=== PATIENT | male | born 1935 | race Caucasian/White ===

== ENCOUNTER 2018-11-12 21:09 | Emergency (ER) | payer OTHER ==
[~2018-11-12] VITALS: Ht 165.1 cm; Wt 68.0 kg
[~2018-11-12 21:09] MED LIST: CIPRO750 MG PO; IBUPROFEN800 MG PO; ORPH100T PO; TRAMADOL HCL50 MG PO; TRIPLE ANTIBIOT15 GM TP
== END 2018-11-12 22:22 | disposition home or self-care (01) ==
LOC: ER 21:09
DX: M79.601 Pain in right arm (principal); S40.021S Contusion of right upper arm, sequela; W22.8XXS Striking against or struck by other objects, sequela

== ENCOUNTER 2024-02-09 13:19 | Emergency (ER) | payer OTHER ==
[~2024-02-09] VITALS: Ht 170.2 cm; Wt 68.0 kg
[2024-02-09] MEDS ORDERED: DEXAMETHASONE SODIUM PHOSPHATE 4 MG/ML VIAL IM STA (15:02)
[2024-02-09] MEDS ORDERED: DEXAMETHASONE SODIUM PHOSPHATE 4 MG/ML VIAL ONE (15:33)
[2024-02-09] MEDS ORDERED: METHYLPREDNISOLONE SOD SUCC 125 MG VIAL IV STA (15:47)
[2024-02-09] MEDS ORDERED: 0.9 % SODIUM CHLORIDE 500 ML IV STA (15:48)
[2024-02-09] MEDS ORDERED: METHYLPREDNISOLONE SOD SUCC 125 MG VIAL ONE (15:55)
[2024-02-09] MEDS ORDERED: BUDESONIDE 0.5 MG/2 ML AMPUL.NEB IH SCH (16:00)
[2024-02-09] MEDS ORDERED: LEVALBUTEROL HCL 1.25 MG/3 ML SOLUTION IH SCH (16:00)
[2024-02-09] MEDS ORDERED: IPRATROPIUM BROMIDE 0.5 MG/2.5 ML AMPUL.NEB IH SCH (16:00)
[2024-02-09] MEDS ORDERED: IPRATROPIUM BROMIDE 0.5 MG/2.5 ML AMPUL.NEB IH ONE (16:08)
[2024-02-09] MEDS ORDERED: BUDESONIDE 0.5 MG/2 ML AMPUL.NEB IH ONE (16:08)
[2024-02-09] MEDS ORDERED: LEVALBUTEROL HCL 1.25 MG/3 ML SOLUTION IH ONE (16:08)
[2024-02-09 16:19] LABS: HEMATOCRIT 40.3 % (39.0-48.0); HEMOGLOBIN 13.7 g/dL (13-16.00); MEAN CELL VOLUME 90.7 fL (80.0-100.00); MEAN CORPUSCULAR HEMOGLOBIN 30.9 pg (27.00-32.0); PLATELET COUNT 267 K/uL (150-450); RED BLOOD COUNT 4.44 M/uL (4.00-6.00); RED CELL DISTRIBUTION WIDTH 14.4 % (11.5-14.5)
[2024-02-09 16:27] LABS: ABG PH 7.507 (7.35-7.45); ABG PO2 95.8 mmHg (80-100); ABG pCO2 29.1 mmHg (35-45); BASE EXCESS 0.7 mmol/l; BICARBONATE 22.6 mmol/l (23-25); SaO2 98.2 %; Tco2 23.5 mmol/l
[2024-02-09 16:54] LABS: CALCIUM 8.9 mg/dL (8.5-10.1); CREATININE SERUM 0.77 mg/dL (0.70-1.30); GFR 95.79; POTASSIUM 4.08 mEq/L (3.5-5.1)
[2024-02-09] MEDS ORDERED: MONTELUKAST SODI4 M1 PO (18:11)
[2024-02-09 20:37] LABS: allen test SATISFACTORY; o2 21 %; puncture site RADIAL LEFT
== END 2024-02-09 18:41 | disposition home or self-care (01) ==
LOC: ER 13:20
PROVIDERS: General Practice
DX: J45.909 Unspecified asthma, uncomplicated (principal); Z20.822 Contact with and (suspected) exposure to COVID-19
CPT/HCPCS: 36415; 71045; 82803; 94640; 96365; 96366; 99285; J3490; J7042